=== PATIENT | female | born 1955 | race Caucasian/White ===

== ENCOUNTER 2024-04-24 07:36 | Outpatient (CLI) | payer MEDICARE, OTHER, SELFPAY ==
--- NOTE | ~2024-04-24 | US_ITS ---
Limited Abdominal Sonogram: Real-time sonographic imaging of the right upper quadrant was performed. Clinical History: Abnormal LFTs Findings: The liver appears echogenic, with no evidence of solid mass lesion or bile duct dilatation . There are 2 adjacent cysts versus septated cyst in the liver, measuring up to 1.8 cm in maximum antonio meter. Main portal vein demonstrates normal direction of flow. The gallbladder is well distended, and appears normal with no evidence of gallstone or wall thickening. The common bile duct measures 5 mm. The visualized pancreas, aorta, and IVC are unremarkable. Impression: Diffuse fatty infiltration of the liver. 2 adjacent cysts versus septated cyst in the liver, as detailed above. Reviewed, dictated and finalized at location . ENT SUPPORT REPRESENTATIVE Impression: Diffuse fatty infiltration of the liver. 2 adjacent cysts versus septated cyst in the liver, as detailed above.
== END 2024-04-24 07:37 | disposition home or self-care (01) ==
LOC: MICIMG 07:37
PROVIDERS: PCP Family Medicine; Visit Provider Family Medicine
DX: K76.0 Fatty (change of) liver, not elsewhere classified (principal); E78.01 Familial hypercholesterolemia; R79.9 Abnormal finding of blood chemistry, unspecified
CPT/HCPCS: 76705